=== PATIENT | female | born 2000 | race Caucasian/White ===

== ENCOUNTER 2021-07-28 14:01 | Emergency (ER) | payer OTHER ==
[~2021-07-28 14:01] MED LIST: CYCLOBENZAPRINE10 MG PO; IBUPROFEN800 MG PO; MEDROL 4MG DOSEP4 MG PO; MOBIC7.5 MG PO; NORCO 5-325 TA1 EACH PO
== END 2021-07-28 14:15 | disposition left against medical advice (07) ==
LOC: FER 14:01
DX: R07.9 Chest pain, unspecified (principal); R06.02 Shortness of breath; R20.2 Paresthesia of skin; Z53.8 Procedure and treatment not carried out for other reasons
CPT/HCPCS: 93005